=== PATIENT | female | born 1965 | race Caucasian/White ===

== ENCOUNTER 2021-09-20 19:36 | Inpatient (IN) ==
[2021-09-20] MEDS ORDERED: Propofol 10 mg/ml 100 ML BTL 100 ML IV ONE (19:45)
[2021-09-20] MEDS ORDERED: fentaNYL INFUSION 50 mcg/mL VL 2,500 MCG/50 ML VIAL IV SCH ×2 (20:00)
[2021-09-20 20:42] LABS: ABS Lymphocytes 0.2 10^3/ul (1.0-4.8); ABS Monocytes 0.3 10^3/ul (0-0.8); ABS Neutrophils 6.7 10^3/ul (1.5-7.7); ABS Nucleated RBC 0.1 10^3/ul; Hematocrit 59 % (35-47); Hemoglobin 19.2 g/dL (12.0-16.0); Lymphocyte % 2.2 %; Mean Corpuscular HGB Conc 33 g/dL (31-36); Mean Corpuscular Hemoglobin 33 pg (27-31); Mean Corpuscular Volume 100 fL (80-97); Mean Platelet Volume 8.7 fL (7.4-10.4); Nucleated Red Blood Cells % 1.4; Platelet Count 107 10^3/uL (150-450); Red Cell Distribution Width 18 % (10-15); White Blood Count 7.2 10^3/uL (3.5-10.8)
[2021-09-20 20:52] LABS: INR 0.98 (0.86-1.15)
[2021-09-20 21:00] LABS: ALT 41 U/L (7-52); Albumin 3.5 g/dL (3.2-5.2); Albumin/Globulin Ratio 0.8 (1-3); Alkaline Phosphatase 162 U/L (35-149); Blood Urea Nitrogen 48 mg/dL (6-24); C Reactive Protein 112.54 mg/L (<8.01); CO2 Carbon Dioxide 34 mmol/L (22-32); Calcium 8.6 mg/dL (8.6-10.3); Chloride 95 mmol/L (101-111); Globulin 4.4 g/dL (2-4); Glucose 200 mg/dL (70-100); Sodium 132 mmol/L (135-145); Total Protein 7.9 g/dL (6.4-8.9); eGFR CKD-EPI 46.1 (>60)
[2021-09-20] MEDS ORDERED: Remdesivir 100 mg Vial 200 MG in NS 0.9% 250 ml 210 ML IV ONE (21:00)
[2021-09-20 21:05] LABS: LDH 936 U/L (140-271)
[2021-09-20 21:12] LABS: PO2 Arterial 75 mmHg (80-100)
[2021-09-20 21:15] LABS: TSH Ultra Thyroid Stim Horm 0.89 mcIU/mL (0.34-5.60)
[2021-09-20 21:18] LABS: Magnesium 2.6 mg/dL (1.9-2.7)
[2021-09-20 21:19] LABS: AST 93 U/L (13-39); Indirect Bilirubin 0.5 mg/dL (0.3-1.0)
[2021-09-20 21:20] LABS: Anion Gap 3 mmol/L (2-11); Ferritin 519.6 ng/mL (11-307)
[2021-09-20 21:24] LABS: Potassium 6.5 mmol/L (3.5-5.0); Troponin I 0.03 ng/mL (<0.03)
[2021-09-20 21:27] LABS: PCO2 Arterial 104 mmHg (35-45)
[2021-09-20] MEDS ORDERED: Sodium Polystyrene ORAL.SUSP 15 GM/60 ML BTL PO ONE (21:36)
[2021-09-20] MEDS ORDERED: CALCIUM GLUCONATE 1GM/50ML NS 1 GM/50 ML BAG IV ONE (21:37)
[2021-09-20] MEDS ORDERED: Dextrose 50% Syringe 50 ml 25 GM/50 ML SYRINGE IV PUSH ONE (21:38)
[2021-09-20] MEDS ORDERED: Sodium Bicarbonate 8.4% SYR 50 ml SYRINGE IV ONE (21:38)
[2021-09-20] MEDS: Propofol 10 mg/ml 100 ML BTL 100 ML IV SCH (22:17)
[2021-09-20] MEDS: methylPREDNISolone SOD 40 mg/ml 1 ml VIAL IV SCH (22:18)
[2021-09-21 00:59] LABS: PCO2 Arterial 71 mmHg (35-45); PO2 Arterial 79 mmHg (80-100)
[2021-09-21] MEDS ORDERED: Chlorhexidine MOUTHWASH 0.12% 15 ML UDC SWISH SPIT SCH (01:00)
[2021-09-21] MEDS ORDERED: Enoxaparin 40 MG/0.4 ML SYR SUBCUT SCH (01:00)
[2021-09-21 01:05] LABS: Urine Appearance Cloudy; Urine Bilirubin Negative (Negative); Urine Blood 1+ (Negative); Urine Color Amber; Urine Glucose Negative (Negative); Urine Ketones Negative (Negative); Urine Nitrite Negative (Negative); Urine Protein 2+(100 mg/dL) (Negative); Urine Specific Gravity 1.023 (1.002-1.030); Urine Urobilinogen Negative (Negative)
[2021-09-21 01:07] LABS: Urine Bacteria Absent (Absent); Urine Red Blood Cell Trace(0-2/hpf) (Absent); Urine Squamous Epithelial Cell Present (Absent); Urine White Blood Cell Absent (Absent)
[2021-09-21 01:12] LABS: Blood Urea Nitrogen 50 mg/dL (6-24); CO2 Carbon Dioxide 35 mmol/L (22-32); Calcium 8.4 mg/dL (8.6-10.3); Chloride 95 mmol/L (101-111); Glucose 270 mg/dL (70-100); Sodium 133 mmol/L (135-145)
[2021-09-21 01:16] LABS: Anion Gap 3 mmol/L (2-11)
[2021-09-21 01:25] LABS: Urine Benzodiazepine Screen Presumptive Positive (None Detect); Urine Cannabinoids Screen None Detected (None Detect); Urine Opiates Screen Presumptive Positive (None Detect)
[2021-09-21] MEDS: Chlorhexidine MOUTHWASH 0.12% 15 ML UDC SWISH SPIT SCH ×6 (02:01→21:12)
[2021-09-21] MEDS: Pantoprazole VIAL 40 MG VIAL IV SCH (02:02)
[2021-09-21] MEDS: cefTRIAXone 1 gm/50 mL NS BAG 1 GM/50 ML BAG IVPB SCH (02:03)
[2021-09-21] MEDS: Azithromycin 500 mg/250 ml NS 500 MG/250 ML BAG IVPB SCH (02:05)
[2021-09-21] MEDS: Propofol 10 mg/ml 100 ML BTL 100 ML IV SCH ×2 (02:10→23:25)
[2021-09-21] MEDS: methylPREDNISolone SOD 40 mg/ml 1 ml VIAL IV SCH ×3 (05:02→21:10)
[2021-09-21 05:30] LABS: ABS Lymphocytes 0.2 10^3/ul (1.0-4.8); ABS Monocytes 0.2 10^3/ul (0-0.8); ABS Neutrophils 5.4 10^3/ul (1.5-7.7); ABS Nucleated RBC 0.1 10^3/ul; Hematocrit 56 % (35-47); Hemoglobin 18.3 g/dL (12.0-16.0); Lymphocyte % 3.2 %; Mean Corpuscular HGB Conc 33 g/dL (31-36); Mean Corpuscular Hemoglobin 32 pg (27-31); Mean Corpuscular Volume 100 fL (80-97); Mean Platelet Volume 9.1 fL (7.4-10.4); Nucleated Red Blood Cells % 1.8; Platelet Count 104 10^3/uL (150-450); Red Blood Count 5.64 10^6 /uL (3.70-4.87); Red Cell Distribution Width 18 % (10-15); White Blood Count 5.8 10^3/uL (3.5-10.8)
[2021-09-21 05:31] LABS: Potassium, Whole Blood 6.4 mmol/L (3.4-4.5)
[2021-09-21 05:35] LABS: INR 1.01 (0.86-1.15)
[2021-09-21 05:49] LABS: Magnesium 2.6 mg/dL (1.9-2.7); eGFR CKD-EPI 40.3 (>60)
[2021-09-21 05:52] LABS: Potassium 6.4 mmol/L (3.5-5.0)
[2021-09-21] MEDS ORDERED: Albuterol HFA INHALER 8 gm MDI INH PRN (05:58)
[2021-09-21] MEDS ORDERED: Sodium Polystyrene ORAL.SUSP 15 GM/60 ML BTL PO ONE (05:58)
[2021-09-21] MEDS ORDERED: Dextrose 50% Syringe 50 ml 25 GM/50 ML SYRINGE IV PUSH ONE (05:58)
[2021-09-21] MEDS ORDERED: CALCIUM GLUCONATE 1GM/50ML NS 1 GM/50 ML BAG IV ONE (05:59)
[2021-09-21] MEDS ORDERED: Sodium Bicarbonate 8.4% SYR 50 ml SYRINGE IV ONE (06:00)
[2021-09-21 06:15] LABS: PO2 Arterial 72 mmHg (80-100)
[2021-09-21 06:17] LABS: PCO2 Arterial 100 mmHg (35-45)
[2021-09-21] MEDS ORDERED: Sodium Bicarb 8.4% Vial 50 ML 150 MEQ in D5W 1000 ml BAG 850 ML IV SCH (08:00)
[2021-09-21] MEDS ORDERED: Sodium Bicarbonate 8.4% VIAL 1 MEQ/ML 50 ml VIAL (50 meq) ONE ×2 (08:24→20:04)
[2021-09-21] MEDS: Sodium Bicarb 8.4% Vial 50 ML 150 MEQ in D5W 1000 ml BAG 850 ML IV SCH ×2 (10:26→21:10)
[2021-09-21 10:44] LABS: Blood Urea Nitrogen 54 mg/dL (6-24); CO2 Carbon Dioxide 40 mmol/L (22-32); Calcium 8.2 mg/dL (8.6-10.3); Chloride 96 mmol/L (101-111); Glucose 248 mg/dL (70-100); Sodium 139 mmol/L (135-145)
[2021-09-21 11:17] LABS: Anion Gap 3 mmol/L (2-11)
[2021-09-21 12:30] LABS: Calcium 8.2 mg/dL (8.6-10.3); eGFR CKD-EPI 40.3 (>60)
[2021-09-21 12:42] LABS: Potassium 5.2 mmol/L (3.5-5.0)
[2021-09-21] MEDS ORDERED: Perflutren Lipid Microsphere 3 ML VIAL ONE (14:36)
[2021-09-21 15:47] LABS: Venous Bicarbonate HCO3 20.4 mmol/L (24-28)
[2021-09-21 20:53] LABS: PCO2 Arterial 76 mmHg (35-45); PO2 Arterial 55 mmHg (80-100)
[2021-09-21] MEDS: Remdesivir 100 mg Vial 100 MG in NS 0.9% 250 ml 230 ML IV SCH (21:23)
[2021-09-21] MEDS ORDERED: Furosemide 40 mg/4 ml IV VIAL IV SLOW PU ONE (21:40)
[2021-09-21] MEDS ORDERED: Cisatracurium 100 MG in NS 0.9% 250 ml 200 ML IV SCH (21:45)
[2021-09-21] MEDS ORDERED: NS 0.9% 250 ml 250 ML ONE (22:37)
[2021-09-22] MEDS: Chlorhexidine MOUTHWASH 0.12% 15 ML UDC SWISH SPIT SCH ×6 (00:57→21:27)
[2021-09-22] MEDS: cefTRIAXone 1 gm/50 mL NS BAG 1 GM/50 ML BAG IVPB SCH (03:30)
[2021-09-22] MEDS: Pantoprazole VIAL 40 MG VIAL IV SCH (03:30)
[2021-09-22] MEDS: methylPREDNISolone SOD 40 mg/ml 1 ml VIAL IV SCH ×3 (04:22→21:27)
[2021-09-22] MEDS: Propofol 10 mg/ml 100 ML BTL 100 ML IV SCH ×4 (04:22→21:26)
[2021-09-22] MEDS: Azithromycin 500 mg/250 ml NS 500 MG/250 ML BAG IVPB SCH (04:58)
[2021-09-22 05:32] LABS: Calcium 7.3 mg/dL (8.6-10.3); Chloride 92 mmol/L (101-111); Magnesium 2.4 mg/dL (1.9-2.7); Sodium 139 mmol/L (135-145)
[2021-09-22 05:38] LABS: Blood Urea Nitrogen 54 mg/dL (6-24); Glucose 356 mg/dL (70-100); eGFR CKD-EPI 44.9 (>60)
[2021-09-22 05:39] LABS: Anion Gap 5 mmol/L (2-11); CO2 Carbon Dioxide 42 mmol/L (22-32)
[2021-09-22 05:40] LABS: INR 1.12 (0.86-1.15)
[2021-09-22 05:44] LABS: RBC Morphology Normal (Normal)
[2021-09-22 05:45] LABS: ABS Lymphocytes 0.2 10^3/ul (1.0-4.8); ABS Monocytes 0.2 10^3/ul (0-0.8); ABS Neutrophils 2.5 10^3/ul (1.5-7.7); ABS Nucleated RBC 0.1 10^3/ul; Hematocrit 56 % (35-47); Hemoglobin 18.1 g/dL (12.0-16.0); Large Platelets Present; Lymphocyte % 8.1 %; Mean Corpuscular HGB Conc 32 g/dL (31-36); Mean Corpuscular Hemoglobin 32 pg (27-31); Mean Corpuscular Volume 100 fL (80-97); Mean Platelet Volume 8.9 fL (7.4-10.4); Nucleated Red Blood Cells % 2.1; Platelet Count 91 10^3/uL (150-450); Red Blood Count 5.65 10^6 /uL (3.70-4.87); Red Cell Distribution Width 18 % (10-15); White Blood Count 2.9 10^3/uL (3.5-10.8)
[2021-09-22 06:51] LABS: Potassium, Whole Blood 4.7 mmol/L (3.4-4.5)
[2021-09-22] MEDS: Sodium Bicarb 8.4% Vial 50 ML 150 MEQ in D5W 1000 ml BAG 850 ML IV SCH (07:53)
[2021-09-22 08:50] LABS: PO2 Arterial 90 mmHg (80-100)
[2021-09-22 08:53] LABS: PCO2 Arterial 75 mmHg (35-45)
[2021-09-22] MEDS: Furosemide 40 mg/4 ml IV VIAL IV SLOW PU SCH ×2 (10:28→17:16)
[2021-09-22] MEDS ORDERED: Perflutren Lipid Microsphere 3 ML VIAL ONE (14:02)
[2021-09-22] MEDS ORDERED: fentaNYL INFUSION 50 mcg/mL VL 2,500 MCG/50 ML VIAL IV SCH (15:05)
[2021-09-22 15:09] LABS: Hematocrit 53 % (35-47)
[2021-09-22 15:50] LABS: Calcium 7.1 mg/dL (8.6-10.3)
[2021-09-22] MEDS: Cisatracurium 100 MG in NS 0.9% 250 ml 200 ML IV SCH ×2 (17:00)
[2021-09-22 17:11] LABS: Potassium 4.2 mmol/L (3.5-5.0)
[2021-09-22] MEDS: Remdesivir 100 mg Vial 100 MG in NS 0.9% 250 ml 230 ML IV SCH (21:26)
[2021-09-23] MEDS: Propofol 10 mg/ml 100 ML BTL 100 ML IV SCH ×4 (00:12→15:25)
[2021-09-23] MEDS: cefTRIAXone 1 gm/50 mL NS BAG 1 GM/50 ML BAG IVPB SCH (01:54)
[2021-09-23] MEDS: Pantoprazole VIAL 40 MG VIAL IV SCH (01:54)
[2021-09-23] MEDS: Chlorhexidine MOUTHWASH 0.12% 15 ML UDC SWISH SPIT SCH ×6 (01:54→20:47)
[2021-09-23] MEDS: Azithromycin 500 mg/250 ml NS 500 MG/250 ML BAG IVPB SCH (03:41)
[2021-09-23] MEDS: Cisatracurium 100 MG in NS 0.9% 250 ml 200 ML IV SCH ×2 (03:42→13:16)
[2021-09-23 04:14] LABS: Hematocrit 52 % (35-47); Hemoglobin 16.6 g/dL (12.0-16.0); Mean Corpuscular HGB Conc 32 g/dL (31-36); Mean Corpuscular Hemoglobin 32 pg (27-31); Mean Corpuscular Volume 100 fL (80-97); Mean Platelet Volume 9.6 fL (7.4-10.4); Platelet Count 111 10^3/uL (150-450); Red Blood Count 5.16 10^6 /uL (3.70-4.87); Red Cell Distribution Width 18 % (10-15); White Blood Count 3.2 10^3/uL (3.5-10.8)
[2021-09-23 04:18] LABS: ABS Lymphocytes 0.2 10^3/ul (1.0-4.8); ABS Monocytes 0.4 10^3/ul (0-0.8); ABS Neutrophils 2.6 10^3/ul (1.5-7.7); ABS Nucleated RBC 0.1 10^3/ul; Lymphocyte % 6.4 %; Nucleated Red Blood Cells % 1.5
[2021-09-23 04:20] LABS: INR 1.11 (0.86-1.15)
[2021-09-23 04:37] LABS: Albumin 2.5 g/dL (3.2-5.2); Calcium 6.9 mg/dL (8.6-10.3); Chloride 93 mmol/L (101-111); Indirect Bilirubin 0.4 mg/dL (0.3-1.0); Magnesium 2.4 mg/dL (1.9-2.7); Potassium 4.2 mmol/L (3.5-5.0); Sodium 142 mmol/L (135-145)
[2021-09-23 04:43] LABS: ALT 31 U/L (7-52); AST 59 U/L (13-39); Albumin/Globulin Ratio 0.7 (1-3); Alkaline Phosphatase 95 U/L (35-149); Blood Urea Nitrogen 61 mg/dL (6-24); Globulin 3.4 g/dL (2-4); Glucose 293 mg/dL (70-100); Phosphorus 5.5 mg/dL (2.5-5.0); Total Protein 5.9 g/dL (6.4-8.9)
[2021-09-23 05:01] LABS: CO2 Carbon Dioxide 46 mmol/L (22-32)
[2021-09-23] MEDS: methylPREDNISolone SOD 40 mg/ml 1 ml VIAL IV SCH ×2 (05:11→16:15)
[2021-09-23] MEDS: Insulin GLARGINE 100 un/ml 10 ml VIAL SUBCUT SCH (07:53)
[2021-09-23] MEDS ORDERED: NS 0.9% 250 ml 250 ML IV ONE (08:47)
[2021-09-23] MEDS: acetaZOLAMIDE IV 250 MG in NS 0.9% 50 ML 50 ML IVPB SCH ×2 (10:17→11:04)
[2021-09-23 10:48] LABS: PO2 Arterial 96 mmHg (80-100)
[2021-09-23 10:54] LABS: PCO2 Arterial 82 mmHg (35-45)
[2021-09-23] MEDS: Remdesivir 100 mg Vial 100 MG in NS 0.9% 250 ml 230 ML IV SCH (22:22)
[2021-09-24] MEDS: Pantoprazole VIAL 40 MG VIAL IV SCH (01:09)
[2021-09-24] MEDS: Chlorhexidine MOUTHWASH 0.12% 15 ML UDC SWISH SPIT SCH ×6 (01:09→20:35)
[2021-09-24] MEDS: cefTRIAXone 1 gm/50 mL NS BAG 1 GM/50 ML BAG IVPB SCH (02:27)
[2021-09-24] MEDS: Azithromycin 500 mg/250 ml NS 500 MG/250 ML BAG IVPB SCH (03:22)
[2021-09-24 04:45] LABS: Hematocrit 54 % (35-47); Hemoglobin 17.1 g/dL (12.0-16.0); Mean Corpuscular HGB Conc 32 g/dL (31-36); Mean Corpuscular Hemoglobin 32 pg (27-31); Mean Corpuscular Volume 101 fL (80-97); Mean Platelet Volume 8.5 fL (7.4-10.4); Platelet Count 106 10^3/uL (150-450); Red Blood Count 5.31 10^6 /uL (3.70-4.87); Red Cell Distribution Width 18 % (10-15); White Blood Count 4.9 10^3/uL (3.5-10.8)
[2021-09-24] MEDS: methylPREDNISolone SOD 40 mg/ml 1 ml VIAL IV SCH ×2 (04:46→16:07)
[2021-09-24 04:51] LABS: INR 1.02 (0.86-1.15)
[2021-09-24 05:18] LABS: Albumin 2.7 g/dL (3.2-5.2); Albumin/Globulin Ratio 0.8 (1-3); Calcium 7.3 mg/dL (8.6-10.3); Direct Bilirubin 0.2 mg/dL (0.03-0.18); Globulin 3.4 g/dL (2-4); Indirect Bilirubin 0.4 mg/dL (0.3-1.0); Magnesium 2.5 mg/dL (1.9-2.7); Potassium 4.3 mmol/L (3.5-5.0); Total Bilirubin 0.6 mg/dL (0.2-1.0); Total Protein 6.1 g/dL (6.4-8.9); eGFR CKD-EPI 55.9 (>60)
[2021-09-24] MEDS: Propofol 10 mg/ml 100 ML BTL 100 ML IV SCH ×3 (08:00→23:37)
[2021-09-24] MEDS: acetaZOLAMIDE IV 250 MG in NS 0.9% 50 ML 50 ML IVPB SCH (08:23)
[2021-09-24] MEDS: Insulin GLARGINE 100 un/ml 10 ml VIAL SUBCUT SCH (08:39)
[2021-09-24] MEDS ORDERED: Furosemide 40 mg/4 ml IV VIAL IV SLOW PU ONE ×2 (09:06→17:00)
[2021-09-24] MEDS: Carboxymethylcellulose/Glyceri 10 ML OPHTH.GEL lubricant eye gel BOTH EYES SCH ×2 (12:17→20:35)
[2021-09-24] MEDS: fentaNYL INFUSION 50 mcg/mL VL 2,500 MCG/50 ML VIAL IV SCH (16:43)
[2021-09-24] MEDS: Remdesivir 100 mg Vial 100 MG in NS 0.9% 250 ml 230 ML IV SCH (20:35)
[2021-09-25] MEDS: cefTRIAXone 1 gm/50 mL NS BAG 1 GM/50 ML BAG IVPB SCH (02:53)
[2021-09-25] MEDS: Chlorhexidine MOUTHWASH 0.12% 15 ML UDC SWISH SPIT SCH ×6 (03:21→20:17)
[2021-09-25] MEDS: Azithromycin 500 mg/250 ml NS 500 MG/250 ML BAG IVPB SCH (03:21)
[2021-09-25] MEDS: Pantoprazole VIAL 40 MG VIAL IV SCH (03:21)
[2021-09-25] MEDS: methylPREDNISolone SOD 40 mg/ml 1 ml VIAL IV SCH ×2 (04:41→15:21)
[2021-09-25] MEDS: Propofol 10 mg/ml 100 ML BTL 100 ML IV SCH ×3 (04:56→20:10)
[2021-09-25 05:01] LABS: INR 1.02 (0.86-1.15)
[2021-09-25 05:13] LABS: Albumin 2.7 g/dL (3.2-5.2); Albumin/Globulin Ratio 0.8 (1-3); Calcium 7.9 mg/dL (8.6-10.3); Globulin 3.5 g/dL (2-4); Total Bilirubin 0.6 mg/dL (0.2-1.0); Total Protein 6.2 g/dL (6.4-8.9); eGFR CKD-EPI 63.1 (>60)
[2021-09-25 05:36] LABS: Direct Bilirubin 0.2 mg/dL (0.03-0.18); Indirect Bilirubin 0.4 mg/dL (0.3-1.0)
[2021-09-25 05:37] LABS: Potassium 4.5 mmol/L (3.5-5.0)
[2021-09-25] MEDS: Carboxymethylcellulose/Glyceri 10 ML OPHTH.GEL lubricant eye gel BOTH EYES SCH ×2 (08:13→19:32)
[2021-09-25] MEDS: Insulin GLARGINE 100 un/ml 10 ml VIAL SUBCUT SCH (08:26)
[2021-09-25] MEDS ORDERED: acetaZOLAMIDE IV 500 MG in NS 0.9% 50 ML 50 ML IVPB ONE (09:45)
[2021-09-25 11:17] LABS: PO2 Arterial 85 mmHg (80-100)
[2021-09-25 11:19] LABS: PCO2 Arterial 99 mmHg (35-45)
[2021-09-25 12:45] LABS: Hematocrit 53 % (35-47); Hemoglobin 16.7 g/dL (12.0-16.0); Mean Corpuscular HGB Conc 32 g/dL (31-36); Mean Corpuscular Hemoglobin 32 pg (27-31); Mean Corpuscular Volume 102 fL (80-97); Platelet Count 111 10^3/uL (150-450); Red Blood Count 5.17 10^6 /uL (3.70-4.87); Red Cell Distribution Width 18 % (10-15); White Blood Count 5.3 10^3/uL (3.5-10.8)
[2021-09-25] MEDS: Docusate LIQ 100 MG/10 ML UDC PO SCH ×2 (14:47→19:32)
[2021-09-25] MEDS: Senna TAB 8.6 mg TAB PO SCH ×2 (14:47→19:32)
[2021-09-25] MEDS: Polyethylene Glycol 3350 17 GM PACKET PO SCH (14:47)
[2021-09-25 16:23] LABS: PO2 Arterial 83 mmHg (80-100)
[2021-09-25 16:33] LABS: PCO2 Arterial 96 mmHg (35-45)
[2021-09-25] MEDS: fentaNYL INFUSION 50 mcg/mL VL 2,500 MCG/50 ML VIAL IV SCH (21:47)
[2021-09-26] MEDS: Chlorhexidine MOUTHWASH 0.12% 15 ML UDC SWISH SPIT SCH ×6 (00:59→20:07)
[2021-09-26] MEDS: Pantoprazole VIAL 40 MG VIAL IV SCH (00:59)
[2021-09-26] MEDS: cefTRIAXone 1 gm/50 mL NS BAG 1 GM/50 ML BAG IVPB SCH (00:59)
[2021-09-26] MEDS: Azithromycin 500 mg/250 ml NS 500 MG/250 ML BAG IVPB SCH (02:15)
[2021-09-26] MEDS: Propofol 10 mg/ml 100 ML BTL 100 ML IV SCH ×2 (03:21→17:26)
[2021-09-26 04:18] LABS: Hematocrit 50 % (35-47); Mean Corpuscular HGB Conc 32 g/dL (31-36); Mean Corpuscular Hemoglobin 32 pg (27-31); Mean Corpuscular Volume 100 fL (80-97); Mean Platelet Volume 9.4 fL (7.4-10.4); Platelet Count 103 10^3/uL (150-450); Red Blood Count 4.99 10^6 /uL (3.70-4.87); Red Cell Distribution Width 18 % (10-15); White Blood Count 5.5 10^3/uL (3.5-10.8)
[2021-09-26 04:23] LABS: INR 1.08 (0.86-1.15)
[2021-09-26 04:35] LABS: ALT 58 U/L (7-52); AST 60 U/L (13-39); Albumin 2.7 g/dL (3.2-5.2); Albumin/Globulin Ratio 0.8 (1-3); Alkaline Phosphatase 89 U/L (35-149); Blood Urea Nitrogen 46 mg/dL (6-24); Calcium 8.4 mg/dL (8.6-10.3); Chloride 105 mmol/L (101-111); Globulin 3.5 g/dL (2-4); Glucose 108 mg/dL (70-100); Indirect Bilirubin 0.4 mg/dL (0.3-1.0); Magnesium 2.2 mg/dL (1.9-2.7); Phosphorus 2.6 mg/dL (2.5-5.0); Potassium 4.6 mmol/L (3.5-5.0); Total Protein 6.2 g/dL (6.4-8.9); eGFR CKD-EPI 77.1 (>60)
[2021-09-26 04:37] LABS: CO2 Carbon Dioxide 42 mmol/L (22-32); Sodium 147 mmol/L (135-145)
[2021-09-26] MEDS: methylPREDNISolone SOD 40 mg/ml 1 ml VIAL IV SCH ×2 (04:47→16:56)
[2021-09-26] MEDS: Insulin GLARGINE 100 un/ml 10 ml VIAL SUBCUT SCH (09:25)
[2021-09-26] MEDS: Senna TAB 8.6 mg TAB PO SCH ×2 (09:25→19:33)
[2021-09-26] MEDS: Carboxymethylcellulose/Glyceri 10 ML OPHTH.GEL lubricant eye gel BOTH EYES SCH ×2 (09:25→19:33)
[2021-09-26] MEDS: Docusate LIQ 100 MG/10 ML UDC PO SCH ×2 (09:25→19:33)
[2021-09-26] MEDS: Polyethylene Glycol 3350 17 GM PACKET PO SCH (09:26)
[2021-09-26] MEDS ORDERED: Magnesium CITRATE LIQ 300 ML BTL PO ONE (09:43)
[2021-09-26] MEDS ORDERED: Methylnaltrexone SQ (NF) 12 MG/0.6 ML VIAL SUBCUT ONE (10:05)
[2021-09-26 10:27] LABS: PO2 Arterial 77 mmHg (80-100)
[2021-09-26 10:30] LABS: PCO2 Arterial 74 mmHg (35-45)
[2021-09-26] MEDS ORDERED: acetaZOLAMIDE IV 250 MG in NS 0.9% 50 ML 50 ML IVPB ONE (11:30)
[2021-09-27] MEDS: cefTRIAXone 1 gm/50 mL NS BAG 1 GM/50 ML BAG IVPB SCH (00:26)
[2021-09-27] MEDS: Pantoprazole VIAL 40 MG VIAL IV SCH (00:26)
[2021-09-27] MEDS: Chlorhexidine MOUTHWASH 0.12% 15 ML UDC SWISH SPIT SCH ×6 (00:26→20:29)
[2021-09-27] MEDS: Azithromycin 500 mg/250 ml NS 500 MG/250 ML BAG IVPB SCH (02:15)
[2021-09-27] MEDS: methylPREDNISolone SOD 40 mg/ml 1 ml VIAL IV SCH ×2 (03:54→17:15)
[2021-09-27 04:12] LABS: Hematocrit 51 % (35-47); Hemoglobin 16.3 g/dL (12.0-16.0); Mean Corpuscular HGB Conc 32 g/dL (31-36); Mean Corpuscular Hemoglobin 32 pg (27-31); Mean Corpuscular Volume 100 fL (80-97); Mean Platelet Volume 9.4 fL (7.4-10.4); Platelet Count 91 10^3/uL (150-450); Red Blood Count 5.12 10^6 /uL (3.70-4.87); Red Cell Distribution Width 18 % (10-15); White Blood Count 7.1 10^3/uL (3.5-10.8)
[2021-09-27] MEDS: Propofol 10 mg/ml 100 ML BTL 100 ML IV SCH ×5 (04:21→23:15)
[2021-09-27 04:26] LABS: Albumin 2.7 g/dL (3.2-5.2); Albumin/Globulin Ratio 0.8 (1-3); Calcium 8.9 mg/dL (8.6-10.3); Globulin 3.6 g/dL (2-4); Magnesium 1.9 mg/dL (1.9-2.7); Total Bilirubin 0.9 mg/dL (0.2-1.0); Total Protein 6.3 g/dL (6.4-8.9); eGFR CKD-EPI 85.1 (>60)
[2021-09-27 04:29] LABS: Direct Bilirubin 0.3 mg/dL (0.03-0.18); Indirect Bilirubin 0.6 mg/dL (0.3-1.0); Phosphorus 2.8 mg/dL (2.5-5.0); Potassium 4.4 mmol/L (3.5-5.0)
[2021-09-27] MEDS: Docusate LIQ 100 MG/10 ML UDC PO SCH ×2 (08:04→19:37)
[2021-09-27] MEDS: Carboxymethylcellulose/Glyceri 10 ML OPHTH.GEL lubricant eye gel BOTH EYES SCH ×2 (08:04→19:37)
[2021-09-27] MEDS: Senna TAB 8.6 mg TAB PO SCH ×2 (08:05→19:37)
[2021-09-27] MEDS: Insulin GLARGINE 100 un/ml 10 ml VIAL SUBCUT SCH (08:05)
[2021-09-27] MEDS: Polyethylene Glycol 3350 17 GM PACKET PO SCH (08:05)
[2021-09-27] MEDS ORDERED: fentaNYL 100 mcg/2 ml 50 MCG/ML VIAL ONE (10:25)
[2021-09-27] MEDS ORDERED: fentaNYL 100 mcg/2 ml 50 MCG/ML VIAL IV SLOW PU ONE (10:42)
[2021-09-27 11:59] LABS: PO2 Arterial 99 mmHg (80-100)
[2021-09-27 12:08] LABS: PCO2 Arterial 81 mmHg (35-45)
[2021-09-28] MEDS: Chlorhexidine MOUTHWASH 0.12% 15 ML UDC SWISH SPIT SCH ×6 (00:10→21:30)
[2021-09-28] MEDS: cefTRIAXone 1 gm/50 mL NS BAG 1 GM/50 ML BAG IVPB SCH (00:10)
[2021-09-28] MEDS: Pantoprazole VIAL 40 MG VIAL IV SCH (00:10)
[2021-09-28] MEDS: Propofol 10 mg/ml 100 ML BTL 100 ML IV SCH ×7 (01:20→23:37)
[2021-09-28] MEDS: methylPREDNISolone SOD 40 mg/ml 1 ml VIAL IV SCH ×2 (03:57→17:29)
[2021-09-28 04:28] LABS: Hematocrit 51 % (35-47); Hemoglobin 16.1 g/dL (12.0-16.0); Mean Corpuscular HGB Conc 32 g/dL (31-36); Mean Corpuscular Hemoglobin 32 pg (27-31); Mean Corpuscular Volume 102 fL (80-97); Mean Platelet Volume 9.3 fL (7.4-10.4); Platelet Count 83 10^3/uL (150-450); Red Blood Count 4.99 10^6 /uL (3.70-4.87); Red Cell Distribution Width 17 % (10-15)
[2021-09-28 04:39] LABS: ALT 46 U/L (7-52); Albumin 2.8 g/dL (3.2-5.2); Albumin/Globulin Ratio 0.7 (1-3); Alkaline Phosphatase 88 U/L (35-149); Blood Urea Nitrogen 42 mg/dL (6-24); CO2 Carbon Dioxide 40 mmol/L (22-32); Calcium 8.9 mg/dL (8.6-10.3); Chloride 105 mmol/L (101-111); Globulin 3.8 g/dL (2-4); Glucose 146 mg/dL (70-100); Total Protein 6.6 g/dL (6.4-8.9); eGFR CKD-EPI 85.1 (>60)
[2021-09-28 04:53] LABS: Sodium 146 mmol/L (135-145)
[2021-09-28] MEDS: fentaNYL INFUSION 50 mcg/mL VL 2,500 MCG/50 ML VIAL IV SCH (05:33)
[2021-09-28 05:36] LABS: Phosphorus 5.1 mg/dL (2.5-5.0)
[2021-09-28 05:38] LABS: Potassium Redraw 5.1 mmol/L (3.5-5.0)
[2021-09-28 05:55] LABS: Anion Gap 1 mmol/L (2-11)
[2021-09-28] MEDS ORDERED: Furosemide 40 mg/4 ml IV VIAL IV ONE (07:28)
[2021-09-28] MEDS: Docusate LIQ 100 MG/10 ML UDC PO SCH ×2 (08:06→21:30)
[2021-09-28] MEDS: Senna TAB 8.6 mg TAB PO SCH ×2 (08:06→21:30)
[2021-09-28] MEDS: Polyethylene Glycol 3350 17 GM PACKET PO SCH (08:07)
[2021-09-28] MEDS: Carboxymethylcellulose/Glyceri 10 ML OPHTH.GEL lubricant eye gel BOTH EYES SCH ×2 (08:07→21:31)
[2021-09-28] MEDS: Insulin GLARGINE 100 un/ml 10 ml VIAL SUBCUT SCH (08:42)
[2021-09-28] MEDS: CMCS: Baricitinib 2 MG TAB (NF) PO SCH (21:48)
[2021-09-29] MEDS: cefTRIAXone 1 gm/50 mL NS BAG 1 GM/50 ML BAG IVPB SCH (02:22)
[2021-09-29] MEDS: Chlorhexidine MOUTHWASH 0.12% 15 ML UDC SWISH SPIT SCH ×6 (02:23→21:26)
[2021-09-29] MEDS: Pantoprazole VIAL 40 MG VIAL IV SCH (02:52)
[2021-09-29] MEDS: Propofol 10 mg/ml 100 ML BTL 100 ML IV SCH ×2 (03:06→06:39)
[2021-09-29] MEDS: Albuterol/Ipratropium NEB.SOL (2.5/0.5 MG) 3 ML NEB.SOLN INH PRN (04:12)
[2021-09-29 05:32] LABS: Hematocrit 50 % (35-47); Hemoglobin 16.1 g/dL (12.0-16.0); Mean Corpuscular HGB Conc 32 g/dL (31-36); Mean Corpuscular Hemoglobin 32 pg (27-31); Mean Corpuscular Volume 101 fL (80-97); Mean Platelet Volume 11.2 fL (7.4-10.4); Platelet Count 93 10^3/uL (150-450); Red Cell Distribution Width 17 % (10-15); White Blood Count 6.2 10^3/uL (3.5-10.8)
[2021-09-29] MEDS: methylPREDNISolone SOD 40 mg/ml 1 ml VIAL IV SCH ×2 (05:51→17:02)
[2021-09-29 05:54] LABS: Albumin 2.9 g/dL (3.2-5.2); Albumin/Globulin Ratio 0.8 (1-3); Calcium 9.3 mg/dL (8.6-10.3); Globulin 3.7 g/dL (2-4); Magnesium 1.9 mg/dL (1.9-2.7); Phosphorus 2.6 mg/dL (2.5-5.0); Potassium 4.7 mmol/L (3.5-5.0); Total Bilirubin 0.7 mg/dL (0.2-1.0); Total Protein 6.6 g/dL (6.4-8.9); eGFR CKD-EPI 102.9 (>60)
[2021-09-29] MEDS ORDERED: methylPREDNISolone SOD 40 mg/ml 1 ml VIAL IV SCH (08:00)
[2021-09-29] MEDS: Senna TAB 8.6 mg TAB PO SCH ×2 (08:04→21:26)
[2021-09-29] MEDS: Docusate LIQ 100 MG/10 ML UDC PO SCH ×2 (08:04→21:26)
[2021-09-29] MEDS: Polyethylene Glycol 3350 17 GM PACKET PO SCH (08:04)
[2021-09-29] MEDS: Carboxymethylcellulose/Glyceri 10 ML OPHTH.GEL lubricant eye gel BOTH EYES SCH ×2 (08:05→21:27)
[2021-09-29] MEDS ORDERED: methylPREDNISolone SOD 40 mg/ml 1 ml VIAL ONE (08:13)
[2021-09-29] MEDS: Insulin GLARGINE 100 un/ml 10 ml VIAL SUBCUT SCH (08:34)
[2021-09-29] MEDS ORDERED: Propofol 10 mg/ml 100 ML BTL 100 ML IV SCH (10:23)
[2021-09-29 13:31] LABS: Rapid COVID-19 Molecular Detected (Undetected)
[2021-09-29] MEDS: CMCS: Baricitinib 2 MG TAB (NF) PO SCH (21:27)
[2021-09-29] MEDS: fentaNYL 100 mcg/2 ml 50 MCG/ML VIAL IV SLOW PU PRN (21:31)
[2021-09-30] MEDS: Pantoprazole VIAL 40 MG VIAL IV SCH (02:21)
[2021-09-30] MEDS: Chlorhexidine MOUTHWASH 0.12% 15 ML UDC SWISH SPIT SCH ×6 (02:21→20:19)
[2021-09-30] MEDS: cefTRIAXone 1 gm/50 mL NS BAG 1 GM/50 ML BAG IVPB SCH (02:52)
[2021-09-30 04:49] LABS: Hematocrit 50 % (35-47); Mean Corpuscular HGB Conc 32 g/dL (31-36); Mean Corpuscular Hemoglobin 32 pg (27-31); Mean Corpuscular Volume 100 fL (80-97); Mean Platelet Volume 10.7 fL (7.4-10.4); Platelet Count 121 10^3/uL (150-450); Red Blood Count 4.97 10^6 /uL (3.70-4.87); Red Cell Distribution Width 17 % (10-15); White Blood Count 9.4 10^3/uL (3.5-10.8)
[2021-09-30 05:08] LABS: Calcium 9.6 mg/dL (8.6-10.3); Magnesium 1.7 mg/dL (1.9-2.7); Phosphorus 2.7 mg/dL (2.5-5.0); eGFR CKD-EPI 105.3 (>60)
[2021-09-30] MEDS: methylPREDNISolone SOD 40 mg/ml 1 ml VIAL IV SCH ×2 (05:43→17:23)
[2021-09-30] MEDS: fentaNYL 100 mcg/2 ml 50 MCG/ML VIAL IV SLOW PU PRN (05:44)
[2021-09-30] MEDS: Albuterol/Ipratropium NEB.SOL (2.5/0.5 MG) 3 ML NEB.SOLN INH PRN ×4 (07:23→14:47)
[2021-09-30] MEDS ORDERED: Magnesium Sulfate IV 3 GM in NS 0.9% 100 ml BAG 100 ML IVPB ONE (07:25)
[2021-09-30] MEDS: Polyethylene Glycol 3350 17 GM PACKET PO SCH (07:53)
[2021-09-30] MEDS: Insulin GLARGINE 100 un/ml 10 ml VIAL SUBCUT SCH (07:53)
[2021-09-30] MEDS: Docusate LIQ 100 MG/10 ML UDC PO SCH ×2 (07:53→20:19)
[2021-09-30] MEDS: Senna TAB 8.6 mg TAB PO SCH ×2 (07:54→20:18)
[2021-09-30] MEDS: Carboxymethylcellulose/Glyceri 10 ML OPHTH.GEL lubricant eye gel BOTH EYES SCH ×2 (07:54→20:37)
[2021-09-30] MEDS: Dexmedetomidine 1,000 MCG in NS 0.9% 250 ml 240 ML IV SCH (10:52)
[2021-09-30] MEDS ORDERED: Propofol 10 mg/ml 100 ML BTL 100 ML IV SCH (11:00)
[2021-09-30] MEDS ORDERED: Albuterol/Ipratropium NEB.SOL (2.5/0.5 MG) 3 ML NEB.SOLN INH SCH (19:00)
[2021-09-30] MEDS: Albuterol/Ipratropium NEB.SOL (2.5/0.5 MG) 3 ML NEB.SOLN INH SCH ×2 (19:23→22:59)
[2021-09-30] MEDS: CMCS: Baricitinib 2 MG TAB (NF) PO SCH (20:18)
[2021-10-01] MEDS: Chlorhexidine MOUTHWASH 0.12% 15 ML UDC SWISH SPIT SCH ×6 (02:39→21:01)
[2021-10-01] MEDS: Pantoprazole VIAL 40 MG VIAL IV SCH (02:39)
[2021-10-01] MEDS: Albuterol/Ipratropium NEB.SOL (2.5/0.5 MG) 3 ML NEB.SOLN INH SCH ×3 (03:11→11:31)
[2021-10-01 05:16] LABS: Hematocrit 48 % (35-47); Hemoglobin 15.7 g/dL (12.0-16.0); Mean Corpuscular HGB Conc 33 g/dL (31-36); Mean Corpuscular Hemoglobin 32 pg (27-31); Mean Corpuscular Volume 98 fL (80-97); Mean Platelet Volume 11.1 fL (7.4-10.4); Platelet Count 139 10^3/uL (150-450); Red Blood Count 4.89 10^6 /uL (3.70-4.87); Red Cell Distribution Width 16 % (10-15); White Blood Count 9.2 10^3/uL (3.5-10.8)
[2021-10-01 05:39] LABS: Albumin/Globulin Ratio 0.8 (1-3); Calcium 9.2 mg/dL (8.6-10.3); Globulin 3.6 g/dL (2-4); Magnesium 1.9 mg/dL (1.9-2.7); Phosphorus 3.1 mg/dL (2.5-5.0); Total Bilirubin 1.2 mg/dL (0.2-1.0); Total Protein 6.6 g/dL (6.4-8.9)
[2021-10-01] MEDS: methylPREDNISolone SOD 40 mg/ml 1 ml VIAL IV SCH ×2 (06:14→16:34)
[2021-10-01] MEDS ORDERED: Magnesium Sulfate IV 1GM/100ML 1 GM/100 ML BAG IV ONE (06:45)
[2021-10-01] MEDS ORDERED: Magnesium Sulfate 2 gm BAG 2 GM/50 ML BAG IVPB ONE (07:32)
[2021-10-01] MEDS: Carboxymethylcellulose/Glyceri 10 ML OPHTH.GEL lubricant eye gel BOTH EYES SCH ×2 (07:58→21:01)
[2021-10-01] MEDS: Senna TAB 8.6 mg TAB PO SCH ×2 (07:59→22:59)
[2021-10-01] MEDS: Docusate LIQ 100 MG/10 ML UDC PO SCH ×2 (07:59→22:59)
[2021-10-01] MEDS: Polyethylene Glycol 3350 17 GM PACKET PO SCH (07:59)
[2021-10-01] MEDS: Insulin GLARGINE 100 un/ml 10 ml VIAL SUBCUT SCH (08:18)
[2021-10-01] MEDS: Dexmedetomidine 1,000 MCG in NS 0.9% 250 ml 240 ML IV SCH (09:51)
[2021-10-01] MEDS ORDERED: Furosemide 20 mg/2 ml IV VIAL IV ONE (17:00)
[2021-10-01] MEDS: CMCS: Baricitinib 2 MG TAB (NF) PO SCH (21:01)
[2021-10-02] MEDS: Chlorhexidine MOUTHWASH 0.12% 15 ML UDC SWISH SPIT SCH ×6 (00:22→20:45)
[2021-10-02] MEDS: Pantoprazole VIAL 40 MG VIAL IV SCH (02:33)
[2021-10-02 05:02] LABS: Hematocrit 45 % (35-47); Hemoglobin 14.8 g/dL (12.0-16.0); Mean Corpuscular HGB Conc 33 g/dL (31-36); Mean Corpuscular Hemoglobin 32 pg (27-31); Mean Corpuscular Volume 97 fL (80-97); Mean Platelet Volume 11.1 fL (7.4-10.4); Platelet Count 160 10^3/uL (150-450); Red Blood Count 4.67 10^6 /uL (3.70-4.87); Red Cell Distribution Width 17 % (10-15)
[2021-10-02 05:18] LABS: Albumin/Globulin Ratio 0.9 (1-3); Globulin 3.3 g/dL (2-4); Phosphorus 4.1 mg/dL (2.5-5.0); Potassium 4.1 mmol/L (3.5-5.0); Total Bilirubin 1.5 mg/dL (0.2-1.0); Total Protein 6.3 g/dL (6.4-8.9); eGFR CKD-EPI 111.1 (>60)
[2021-10-02] MEDS: methylPREDNISolone SOD 40 mg/ml 1 ml VIAL IV SCH ×2 (06:21→18:09)
[2021-10-02] MEDS: Polyethylene Glycol 3350 17 GM PACKET PO SCH (08:55)
[2021-10-02] MEDS: Carboxymethylcellulose/Glyceri 10 ML OPHTH.GEL lubricant eye gel BOTH EYES SCH ×2 (08:55→19:33)
[2021-10-02] MEDS: Docusate LIQ 100 MG/10 ML UDC PO SCH ×2 (08:55→19:33)
[2021-10-02] MEDS: Senna TAB 8.6 mg TAB PO SCH ×2 (08:56→19:33)
[2021-10-02] MEDS: Insulin GLARGINE 100 un/ml 10 ml VIAL SUBCUT SCH (09:14)
[2021-10-02] MEDS: Dexmedetomidine 1,000 MCG in NS 0.9% 250 ml 240 ML IV SCH (11:27)
[2021-10-02] MEDS: CMCS: Baricitinib 2 MG TAB (NF) PO SCH (19:33)
[2021-10-02] MEDS: fentaNYL 100 mcg/2 ml 50 MCG/ML VIAL IV SLOW PU PRN (21:19)
[2021-10-03] MEDS: Pantoprazole VIAL 40 MG VIAL IV SCH (01:10)
[2021-10-03] MEDS: Chlorhexidine MOUTHWASH 0.12% 15 ML UDC SWISH SPIT SCH ×6 (01:10→21:06)
[2021-10-03] MEDS: methylPREDNISolone SOD 40 mg/ml 1 ml VIAL IV SCH ×2 (04:16→17:02)
[2021-10-03 04:34] LABS: Hematocrit 44 % (35-47); Hemoglobin 14.3 g/dL (12.0-16.0); Mean Corpuscular HGB Conc 33 g/dL (31-36); Mean Corpuscular Hemoglobin 32 pg (27-31); Mean Corpuscular Volume 97 fL (80-97); Mean Platelet Volume 10.7 fL (7.4-10.4); Platelet Count 167 10^3/uL (150-450); Red Blood Count 4.54 10^6 /uL (3.70-4.87); Red Cell Distribution Width 17 % (10-15); White Blood Count 11.4 10^3/uL (3.5-10.8)
[2021-10-03] MEDS: Dexmedetomidine 1,000 MCG in NS 0.9% 250 ml 240 ML IV SCH ×2 (04:53→22:40)
[2021-10-03 04:55] LABS: Magnesium 1.8 mg/dL (1.9-2.7); Phosphorus 3.8 mg/dL (2.5-5.0); Potassium 3.8 mmol/L (3.5-5.0)
[2021-10-03] MEDS ORDERED: Potassium Chloride LIQUID 20 MEQ/15 ML LIQUID PO ONE (07:56)
[2021-10-03] MEDS ORDERED: Magnesium Sulfate 2 gm BAG 2 GM/50 ML BAG IVPB ONE (07:56)
[2021-10-03] MEDS: Polyethylene Glycol 3350 17 GM PACKET PO SCH (08:39)
[2021-10-03] MEDS: Insulin GLARGINE 100 un/ml 10 ml VIAL SUBCUT SCH (08:54)
[2021-10-03] MEDS: Docusate LIQ 100 MG/10 ML UDC PO SCH ×2 (08:55→19:36)
[2021-10-03] MEDS: Carboxymethylcellulose/Glyceri 10 ML OPHTH.GEL lubricant eye gel BOTH EYES SCH ×2 (08:55→19:14)
[2021-10-03] MEDS: Senna TAB 8.6 mg TAB PO SCH ×2 (08:56→19:14)
[2021-10-03] MEDS ORDERED: Furosemide 40 mg/4 ml IV VIAL IV SLOW PU ONE (15:15)
[2021-10-03] MEDS: CMCS: Baricitinib 2 MG TAB (NF) PO SCH (19:36)
[2021-10-04] MEDS: Chlorhexidine MOUTHWASH 0.12% 15 ML UDC SWISH SPIT SCH ×6 (01:12→20:33)
[2021-10-04] MEDS: Pantoprazole VIAL 40 MG VIAL IV SCH (01:12)
[2021-10-04] MEDS: methylPREDNISolone SOD 40 mg/ml 1 ml VIAL IV SCH ×2 (04:15→16:57)
[2021-10-04 04:33] LABS: ABS Basophils 0.1 10^3/ul (0-0.2); ABS Lymphocytes 0.9 10^3/ul (1.0-4.8); ABS Monocytes 1.1 10^3/ul (0-0.8); ABS Neutrophils 9.4 10^3/ul (1.5-7.7); Eosinophil % 0.1 %; Hematocrit 44 % (35-47); Hemoglobin 14.4 g/dL (12.0-16.0); Lymphocyte % 8.2 %; Mean Corpuscular HGB Conc 33 g/dL (31-36); Mean Corpuscular Hemoglobin 32 pg (27-31); Mean Corpuscular Volume 97 fL (80-97); Mean Platelet Volume 11.3 fL (7.4-10.4); Platelet Count 199 10^3/uL (150-450); Red Blood Count 4.48 10^6 /uL (3.70-4.87); Red Cell Distribution Width 16 % (10-15); White Blood Count 11.6 10^3/uL (3.5-10.8)
[2021-10-04 04:42] LABS: ALT 171 U/L (7-52); Albumin 3.1 g/dL (3.2-5.2); Albumin/Globulin Ratio 0.9 (1-3); Alkaline Phosphatase 69 U/L (35-149); Blood Urea Nitrogen 34 mg/dL (6-24); CO2 Carbon Dioxide 35 mmol/L (22-32); Calcium 9.3 mg/dL (8.6-10.3); Chloride 100 mmol/L (101-111); Globulin 3.6 g/dL (2-4); Glucose 115 mg/dL (70-100); Sodium 142 mmol/L (135-145); Total Protein 6.7 g/dL (6.4-8.9); eGFR CKD-EPI 105.3 (>60)
[2021-10-04 04:52] LABS: Anion Gap 7 mmol/L (2-11)
[2021-10-04 05:22] LABS: Magnesium 1.9 mg/dL (1.9-2.7); Phosphorus 4.1 mg/dL (2.5-5.0); Potassium Redraw 3.6 mmol/L (3.5-5.0)
[2021-10-04] MEDS: Senna TAB 8.6 mg TAB PO SCH ×2 (08:23→19:45)
[2021-10-04] MEDS: Insulin GLARGINE 100 un/ml 10 ml VIAL SUBCUT SCH (08:28)
[2021-10-04] MEDS: Carboxymethylcellulose/Glyceri 10 ML OPHTH.GEL lubricant eye gel BOTH EYES SCH ×2 (08:29→19:45)
[2021-10-04] MEDS: Docusate LIQ 100 MG/10 ML UDC PO SCH ×2 (08:29→19:45)
[2021-10-04] MEDS: Polyethylene Glycol 3350 17 GM PACKET PO SCH (08:30)
[2021-10-04] MEDS ORDERED: KCL 20 MEQ/100 ML IVPREMIX 20 MEQ/100 ML BAG IV ONE (11:03)
[2021-10-04] MEDS: Dexmedetomidine 1,000 MCG in NS 0.9% 250 ml 240 ML IV SCH (13:40)
[2021-10-05 01:47] LABS: Urine Appearance Clear; Urine Bilirubin Negative (Negative); Urine Blood Negative (Negative); Urine Color Yellow; Urine Glucose Negative (Negative); Urine Ketones Negative (Negative); Urine Nitrite Negative (Negative); Urine Protein Negative (Negative); Urine Specific Gravity 1.019 (1.002-1.030); Urine Urobilinogen Negative (Negative)
[2021-10-05] MEDS: Pantoprazole VIAL 40 MG VIAL IV SCH (02:36)
[2021-10-05] MEDS: Chlorhexidine MOUTHWASH 0.12% 15 ML UDC SWISH SPIT SCH ×6 (02:36→20:27)
[2021-10-05] MEDS: methylPREDNISolone SOD 40 mg/ml 1 ml VIAL IV SCH ×2 (04:42→17:40)
[2021-10-05 04:46] LABS: ABS Eosinophils 0.1 10^3/ul (0-0.6); ABS Lymphocytes 0.8 10^3/ul (1.0-4.8); ABS Monocytes 1.2 10^3/ul (0-0.8); ABS Neutrophils 9.4 10^3/ul (1.5-7.7); Eosinophil % 0.6 %; Hematocrit 43 % (35-47); Hemoglobin 14.2 g/dL (12.0-16.0); Lymphocyte % 7.3 %; Mean Corpuscular HGB Conc 33 g/dL (31-36); Mean Corpuscular Hemoglobin 32 pg (27-31); Mean Corpuscular Volume 97 fL (80-97); Mean Platelet Volume 11.3 fL (7.4-10.4); Platelet Count 193 10^3/uL (150-450); Red Blood Count 4.47 10^6 /uL (3.70-4.87); Red Cell Distribution Width 16 % (10-15); White Blood Count 11.6 10^3/uL (3.5-10.8)
[2021-10-05] MEDS: Dexmedetomidine 1,000 MCG in NS 0.9% 250 ml 240 ML IV SCH (05:13)
[2021-10-05 06:47] LABS: Calcium 9.1 mg/dL (8.6-10.3); Magnesium 1.8 mg/dL (1.9-2.7); Potassium 3.9 mmol/L (3.5-5.0)
[2021-10-05 06:53] LABS: Phosphorus 4.1 mg/dL (2.5-5.0); eGFR CKD-EPI 109.5 (>60)
[2021-10-05] MEDS: Docusate LIQ 100 MG/10 ML UDC PO SCH ×2 (08:58→20:24)
[2021-10-05] MEDS: Polyethylene Glycol 3350 17 GM PACKET PO SCH (08:58)
[2021-10-05] MEDS: Carboxymethylcellulose/Glyceri 10 ML OPHTH.GEL lubricant eye gel BOTH EYES SCH ×2 (08:58→20:27)
[2021-10-05] MEDS: Insulin GLARGINE 100 un/ml 10 ml VIAL SUBCUT SCH (08:58)
[2021-10-05] MEDS ORDERED: Furosemide 40 mg/4 ml IV VIAL IV ONE (09:07)
[2021-10-05] MEDS ORDERED: Magnesium Sulfate 2 gm BAG 2 GM/50 ML BAG IVPB ONE (09:07)
[2021-10-05] MEDS ORDERED: Potassium Chloride LIQUID 20 MEQ/15 ML LIQUID PO ONE (09:07)
[2021-10-05] MEDS: Senna TAB 8.6 mg TAB PO SCH ×2 (10:03→20:24)
[2021-10-05] MEDS ORDERED: Propofol 10 MG/ML 20 ML BTL ONE (12:29)
[2021-10-05 14:44] LABS: PCO2 Arterial 54 mmHg (35-45); PO2 Arterial 61 mmHg (80-100)
[2021-10-05 22:48] LABS: ABS Lymphocytes 0.4 10^3/ul (1.0-4.8); ABS Monocytes 0.9 10^3/ul (0-0.8); ABS Neutrophils 13.1 10^3/ul (1.5-7.7); Eosinophil % 0.1 %; Hematocrit 47 % (35-47); Hemoglobin 15.6 g/dL (12.0-16.0); Lymphocyte % 2.5 %; Mean Corpuscular HGB Conc 34 g/dL (31-36); Mean Corpuscular Hemoglobin 32 pg (27-31); Mean Corpuscular Volume 97 fL (80-97); Mean Platelet Volume 11.1 fL (7.4-10.4); Platelet Count 223 10^3/uL (150-450); Red Blood Count 4.83 10^6 /uL (3.70-4.87); Red Cell Distribution Width 16 % (10-15); White Blood Count 14.4 10^3/uL (3.5-10.8)
[2021-10-06] MEDS: Pantoprazole VIAL 40 MG VIAL IV SCH (01:36)
[2021-10-06] MEDS: Chlorhexidine MOUTHWASH 0.12% 15 ML UDC SWISH SPIT SCH ×2 (01:36→06:29)
[2021-10-06 05:15] LABS: ABS Eosinophils 0.1 10^3/ul (0-0.6); ABS Lymphocytes 0.7 10^3/ul (1.0-4.8); ABS Monocytes 1.5 10^3/ul (0-0.8); ABS Neutrophils 10.5 10^3/ul (1.5-7.7); Eosinophil % 0.4 %; Hematocrit 46 % (35-47); Hemoglobin 15.2 g/dL (12.0-16.0); Lymphocyte % 5.4 %; Mean Corpuscular HGB Conc 33 g/dL (31-36); Mean Corpuscular Hemoglobin 32 pg (27-31); Mean Corpuscular Volume 97 fL (80-97); Mean Platelet Volume 10.8 fL (7.4-10.4); Platelet Count 218 10^3/uL (150-450); Red Blood Count 4.78 10^6 /uL (3.70-4.87); Red Cell Distribution Width 16 % (10-15); White Blood Count 12.7 10^3/uL (3.5-10.8)
[2021-10-06 05:32] LABS: Calcium 9.8 mg/dL (8.6-10.3); Magnesium 2.1 mg/dL (1.9-2.7); Phosphorus 3.7 mg/dL (2.5-5.0); Potassium 3.6 mmol/L (3.5-5.0)
[2021-10-06] MEDS: methylPREDNISolone SOD 40 mg/ml 1 ml VIAL IV SCH ×2 (06:29→18:25)
[2021-10-06] MEDS: Polyethylene Glycol 3350 17 GM PACKET PO SCH (09:17)
[2021-10-06] MEDS: Senna TAB 8.6 mg TAB PO SCH ×2 (09:17→20:06)
[2021-10-06] MEDS: Docusate LIQ 100 MG/10 ML UDC PO SCH ×2 (09:17→20:06)
[2021-10-06] MEDS: Potassium Chloride LIQUID 20 MEQ/15 ML LIQUID PO ONE ×2 (09:18→09:19)
[2021-10-06 09:46] LABS: Albumin 3.5 g/dL (3.2-5.2); Albumin/Globulin Ratio 0.9 (1-3); Globulin 3.9 g/dL (2-4); Indirect Bilirubin 1.7 mg/dL (0.3-1.0); Total Bilirubin 2.7 mg/dL (0.2-1.0); Total Protein 7.4 g/dL (6.4-8.9)
[2021-10-06] MEDS ORDERED: Potassium Chlor 20 meq TAB.ER PO ONE (10:13)
[2021-10-06] MEDS: Insulin GLARGINE 100 un/ml 10 ml VIAL SUBCUT SCH (10:23)
[2021-10-06] MEDS ORDERED: Potassium Chloride LIQUID 20 MEQ/15 ML LIQUID PO ONE (10:30)
[2021-10-06] MEDS: Carboxymethylcellulose/Glyceri 10 ML OPHTH.GEL lubricant eye gel BOTH EYES SCH (10:30)
[2021-10-06] MEDS ORDERED: Furosemide 40 mg/4 ml IV VIAL IV SLOW PU ONE (12:21)
[2021-10-07] MEDS: Pantoprazole VIAL 40 MG VIAL IV SCH (01:53)
[2021-10-07] MEDS: Docusate LIQ 100 MG/10 ML UDC PO SCH ×2 (10:07→19:53)
[2021-10-07] MEDS: Senna TAB 8.6 mg TAB PO SCH ×2 (10:08→19:51)
[2021-10-07] MEDS: Polyethylene Glycol 3350 17 GM PACKET PO SCH (10:08)
[2021-10-07] MEDS: Insulin GLARGINE 100 un/ml 10 ml VIAL SUBCUT SCH (10:08)
[2021-10-07 10:29] LABS: Albumin 3.9 g/dL (3.2-5.2); CO2 Carbon Dioxide 26 mmol/L (22-32); Chloride 104 mmol/L (101-111); Sodium 140 mmol/L (135-145)
[2021-10-07 10:35] LABS: Albumin/Globulin Ratio 0.9 (1-3); Alkaline Phosphatase 77 U/L (35-149); Blood Urea Nitrogen 39 mg/dL (6-24); Globulin 4.3 g/dL (2-4); Glucose 85 mg/dL (70-100); Total Protein 8.2 g/dL (6.4-8.9)
[2021-10-07 11:00] LABS: Anion Gap 10 mmol/L (2-11)
[2021-10-07 11:10] LABS: ABS Eosinophils 0.1 10^3/ul (0-0.6); ABS Lymphocytes 0.8 10^3/ul (1.0-4.8); ABS Monocytes 1.2 10^3/ul (0-0.8); ABS Neutrophils 10.6 10^3/ul (1.5-7.7); Eosinophil % 0.7 %; Hematocrit 48 % (35-47); Hemoglobin 15.7 g/dL (12.0-16.0); Lymphocyte % 6.4 %; Mean Corpuscular HGB Conc 33 g/dL (31-36); Mean Corpuscular Hemoglobin 32 pg (27-31); Mean Corpuscular Volume 97 fL (80-97); Mean Platelet Volume 10.9 fL (7.4-10.4); Nucleated Red Blood Cells % 0.1; Platelet Count 230 10^3/uL (150-450); Red Blood Count 4.93 10^6 /uL (3.70-4.87); Red Cell Distribution Width 16 % (10-15); White Blood Count 12.7 10^3/uL (3.5-10.8)
[2021-10-07 11:23] LABS: ALT 574 U/L (7-52)
[2021-10-07 11:45] LABS: Potassium Redraw 3.6 mmol/L (3.5-5.0)
[2021-10-07 15:18] LABS: Urine Appearance Clear; Urine Bilirubin Negative (Negative); Urine Blood Negative (Negative); Urine Color Amber; Urine Glucose Negative (Negative); Urine Ketones Negative (Negative); Urine Nitrite Negative (Negative); Urine Protein 1+(30 mg/dL) (Negative); Urine Specific Gravity 1.025 (1.002-1.030); Urine Urobilinogen Positive (Negative)
[2021-10-07 15:24] LABS: Urine Amorphous Crystals Present (Absent); Urine Bacteria 3+ (Absent); Urine Red Blood Cell Trace(0-2/hpf) (Absent); Urine Squamous Epithelial Cell Present (Absent); Urine White Blood Cell Trace(0-5/hpf) (Absent)
[2021-10-08] MEDS: Pantoprazole VIAL 40 MG VIAL IV SCH (01:49)
[2021-10-08 06:45] LABS: Albumin 3.7 g/dL (3.2-5.2); CO2 Carbon Dioxide 32 mmol/L (22-32); Chloride 104 mmol/L (101-111); Sodium 143 mmol/L (135-145)
[2021-10-08 06:48] LABS: ABS Eosinophils 0.1 10^3/ul (0-0.6); ABS Lymphocytes 0.8 10^3/ul (1.0-4.8); ABS Monocytes 0.9 10^3/ul (0-0.8); ABS Neutrophils 8.4 10^3/ul (1.5-7.7); Eosinophil % 1.4 %; Hematocrit 44 % (35-47); Hemoglobin 14.9 g/dL (12.0-16.0); Mean Corpuscular HGB Conc 34 g/dL (31-36); Mean Corpuscular Hemoglobin 33 pg (27-31); Mean Corpuscular Volume 97 fL (80-97); Mean Platelet Volume 10.5 fL (7.4-10.4); Nucleated Red Blood Cells % 0.1; Platelet Count 197 10^3/uL (150-450); Red Blood Count 4.55 10^6 /uL (3.70-4.87); Red Cell Distribution Width 16 % (10-15); White Blood Count 10.2 10^3/uL (3.5-10.8)
[2021-10-08 06:51] LABS: Alkaline Phosphatase 76 U/L (35-149); Blood Urea Nitrogen 38 mg/dL (6-24); Globulin 3.7 g/dL (2-4); Glucose 80 mg/dL (70-100); Total Protein 7.4 g/dL (6.4-8.9); eGFR CKD-EPI 105.3 (>60)
[2021-10-08 07:11] LABS: Anion Gap 7 mmol/L (2-11)
[2021-10-08] MEDS: Docusate LIQ 100 MG/10 ML UDC PO SCH ×2 (08:12→20:00)
[2021-10-08] MEDS: Polyethylene Glycol 3350 17 GM PACKET PO SCH (08:12)
[2021-10-08] MEDS: Senna TAB 8.6 mg TAB PO SCH ×2 (08:12→20:01)
[2021-10-08] MEDS: Insulin GLARGINE 100 un/ml 10 ml VIAL SUBCUT SCH (08:14)
[2021-10-08 08:48] LABS: Phosphorus 3.8 mg/dL (2.5-5.0); Potassium Redraw 3.6 mmol/L (3.5-5.0)
[2021-10-08 09:22] LABS: ALT 601 U/L (7-52)
[2021-10-08] MEDS ORDERED: Furosemide 20 mg/2 ml IV VIAL IV ONE (09:35)
[2021-10-08] MEDS ORDERED: Potassium Chlor 20 meq TAB.ER PO ONE (09:35)
[2021-10-08] MEDS: KCL premix 10 MEQ/50 ML x 4 RUNS IV SCH ×4 (11:40→15:40)
[2021-10-08] MEDS ORDERED: Acetylcysteine IV 15,000 MG in D5W 250 ml BAG 200 ML IV ONE (23:00)
[2021-10-08] MEDS ORDERED: Acetylcysteine IV 5,000 MG in D5W 500 ml BAG 500 ML IV ONE (23:40)
[2021-10-09] MEDS: Pantoprazole VIAL 40 MG VIAL IV SCH (02:00)
[2021-10-09] MEDS ORDERED: Acetylcysteine IV 10,000 MG in D5W 1000 ml BAG 1,000 ML IV ONE (04:00)
[2021-10-09 05:02] LABS: Hematocrit 45 % (35-47); Hemoglobin 14.6 g/dL (12.0-16.0); Mean Corpuscular HGB Conc 33 g/dL (31-36); Mean Corpuscular Hemoglobin 32 pg (27-31); Mean Corpuscular Volume 97 fL (80-97); Mean Platelet Volume 10.7 fL (7.4-10.4); Platelet Count 200 10^3/uL (150-450); Red Blood Count 4.59 10^6 /uL (3.70-4.87); Red Cell Distribution Width 16 % (10-15); White Blood Count 9.7 10^3/uL (3.5-10.8)
[2021-10-09 05:15] LABS: ABS Eosinophils 0.1 10^3/ul (0-0.6); ABS Lymphocytes 0.7 10^3/ul (1.0-4.8); ABS Monocytes 0.9 10^3/ul (0-0.8); Eosinophil % 1.4 %; Lymphocyte % 7.1 %
[2021-10-09 05:17] LABS: Calcium 9.7 mg/dL (8.6-10.3); Magnesium 1.9 mg/dL (1.9-2.7); Phosphorus 3.6 mg/dL (2.5-5.0); Potassium 3.3 mmol/L (3.5-5.0); eGFR CKD-EPI 106.6 (>60)
[2021-10-09] MEDS ORDERED: Potassium Chlor 20 meq TAB.ER PO ONE ×3 (07:11→14:00)
[2021-10-09] MEDS: Docusate LIQ 100 MG/10 ML UDC PO SCH ×2 (08:23→18:59)
[2021-10-09] MEDS: Polyethylene Glycol 3350 17 GM PACKET PO SCH (08:23)
[2021-10-09] MEDS: Senna TAB 8.6 mg TAB PO SCH ×2 (08:24→18:59)
[2021-10-09] MEDS ORDERED: Furosemide 40 mg/4 ml IV VIAL IV ONE (10:13)
[2021-10-09] MEDS: Insulin GLARGINE 100 un/ml 10 ml VIAL SUBCUT SCH (10:29)
[2021-10-09 15:07] LABS: Albumin 3.9 g/dL (3.2-5.2); Globulin 3.8 g/dL (2-4); Total Protein 7.7 g/dL (6.4-8.9)
[2021-10-09 15:08] LABS: Direct Bilirubin 0.8 mg/dL (0.03-0.18); Indirect Bilirubin 1.5 mg/dL (0.3-1.0); Total Bilirubin 2.3 mg/dL (0.2-1.0)
[2021-10-10] MEDS: Pantoprazole VIAL 40 MG VIAL IV SCH (01:36)
[2021-10-10 09:09] LABS: ABS Eosinophils 0.1 10^3/ul (0-0.6); ABS Monocytes 0.9 10^3/ul (0-0.8); ABS Neutrophils 7.9 10^3/ul (1.5-7.7); Eosinophil % 1.2 %; Hematocrit 46 % (35-47); Hemoglobin 15.3 g/dL (12.0-16.0); Lymphocyte % 10.1 %; Mean Corpuscular HGB Conc 34 g/dL (31-36); Mean Corpuscular Hemoglobin 32 pg (27-31); Mean Corpuscular Volume 96 fL (80-97); Mean Platelet Volume 11.1 fL (7.4-10.4); Platelet Count 190 10^3/uL (150-450); Red Blood Count 4.75 10^6 /uL (3.70-4.87); Red Cell Distribution Width 16 % (10-15); White Blood Count 9.9 10^3/uL (3.5-10.8)
[2021-10-10 09:25] LABS: Albumin 3.9 g/dL (3.2-5.2); Calcium 10.5 mg/dL (8.6-10.3); Globulin 4.1 g/dL (2-4); Potassium 3.7 mmol/L (3.5-5.0); eGFR CKD-EPI 102.9 (>60)
[2021-10-10 09:26] LABS: Total Bilirubin 2.2 mg/dL (0.2-1.0)
[2021-10-10] MEDS: Docusate LIQ 100 MG/10 ML UDC PO SCH ×2 (10:22→20:16)
[2021-10-10] MEDS: Polyethylene Glycol 3350 17 GM PACKET PO SCH (10:23)
[2021-10-10] MEDS: Senna TAB 8.6 mg TAB PO SCH ×2 (11:44→20:25)
[2021-10-11] MEDS: Pantoprazole VIAL 40 MG VIAL IV SCH (03:29)
[2021-10-11 05:17] LABS: ABS Basophils 0.1 10^3/ul (0-0.2); ABS Eosinophils 0.2 10^3/ul (0-0.6); ABS Lymphocytes 1.2 10^3/ul (1.0-4.8); ABS Monocytes 0.9 10^3/ul (0-0.8); ABS Neutrophils 8.9 10^3/ul (1.5-7.7); Eosinophil % 1.8 %; Hematocrit 45 % (35-47); Hemoglobin 14.8 g/dL (12.0-16.0); Lymphocyte % 10.6 %; Mean Corpuscular HGB Conc 33 g/dL (31-36); Mean Corpuscular Hemoglobin 32 pg (27-31); Mean Corpuscular Volume 97 fL (80-97); Mean Platelet Volume 11.1 fL (7.4-10.4); Platelet Count 175 10^3/uL (150-450); Red Blood Count 4.68 10^6 /uL (3.70-4.87); Red Cell Distribution Width 16 % (10-15); White Blood Count 11.2 10^3/uL (3.5-10.8)
[2021-10-11 05:33] LABS: Albumin/Globulin Ratio 1.1 (1-3); Calcium 10.5 mg/dL (8.6-10.3); Globulin 3.8 g/dL (2-4); Potassium 3.5 mmol/L (3.5-5.0); Total Protein 7.8 g/dL (6.4-8.9)
[2021-10-11] MEDS: Senna TAB 8.6 mg TAB PO SCH ×2 (11:29→20:04)
[2021-10-11] MEDS: Docusate LIQ 100 MG/10 ML UDC PO SCH ×2 (11:29→20:04)
[2021-10-11] MEDS: Polyethylene Glycol 3350 17 GM PACKET PO SCH (11:31)
[2021-10-11] MEDS: Albuterol/Ipratropium NEB.SOL (2.5/0.5 MG) 3 ML NEB.SOLN INH PRN (20:15)
[2021-10-11] MEDS: Acetylcysteine INHALATION SOL 200 MG/ML NEB.SOLN 10 ML INH SCH (20:16)
[2021-10-12] MEDS: Acetylcysteine INHALATION SOL 200 MG/ML NEB.SOLN 10 ML INH SCH ×2 (02:00→07:44)
[2021-10-12] MEDS: Albuterol/Ipratropium NEB.SOL (2.5/0.5 MG) 3 ML NEB.SOLN INH PRN (02:01)
[2021-10-12] MEDS: Pantoprazole VIAL 40 MG VIAL IV SCH (03:30)
[2021-10-12 07:13] LABS: ABS Eosinophils 0.2 10^3/ul (0-0.6); ABS Lymphocytes 1.3 10^3/ul (1.0-4.8); ABS Monocytes 0.7 10^3/ul (0-0.8); Eosinophil % 1.8 %; Hematocrit 42 % (35-47); Lymphocyte % 12.4 %; Mean Corpuscular HGB Conc 34 g/dL (31-36); Mean Corpuscular Hemoglobin 33 pg (27-31); Mean Corpuscular Volume 97 fL (80-97); Mean Platelet Volume 11.1 fL (7.4-10.4); Platelet Count 151 10^3/uL (150-450); Red Blood Count 4.27 10^6 /uL (3.70-4.87); Red Cell Distribution Width 16 % (10-15); White Blood Count 10.2 10^3/uL (3.5-10.8)
[2021-10-12 07:29] LABS: Albumin 3.6 g/dL (3.2-5.2); Albumin/Globulin Ratio 1.1 (1-3); Calcium 9.7 mg/dL (8.6-10.3); Globulin 3.4 g/dL (2-4); Potassium 3.1 mmol/L (3.5-5.0); Total Bilirubin 1.6 mg/dL (0.2-1.0); eGFR CKD-EPI 103.3 (>60)
[2021-10-12] MEDS: Polyethylene Glycol 3350 17 GM PACKET PO SCH (08:16)
[2021-10-12] MEDS: Docusate LIQ 100 MG/10 ML UDC PO SCH ×3 (08:16→20:00)
[2021-10-12] MEDS ORDERED: Potassium Chloride LIQUID 20 MEQ/15 ML LIQUID PO ONE (08:23)
[2021-10-12] MEDS: Senna TAB 8.6 mg TAB PO SCH ×3 (08:28→19:59)
[2021-10-12 09:32] LABS: Free T3 3.3 pg/mL (2.5-3.9)
[2021-10-12 09:33] LABS: Free T4 0.98 ng/dL (0.61-1.12)
[2021-10-12] MEDS ORDERED: Acetylcysteine INHALATION SOL 200 MG/ML NEB.SOLN 10 ML INH PRN (11:30)
[2021-10-13] MEDS: Pantoprazole VIAL 40 MG VIAL IV SCH (02:04)
[2021-10-13 06:44] LABS: Albumin 3.7 g/dL (3.2-5.2); Albumin/Globulin Ratio 1.1 (1-3); Globulin 3.5 g/dL (2-4); Magnesium 1.9 mg/dL (1.9-2.7); Potassium 3.6 mmol/L (3.5-5.0); Total Bilirubin 1.3 mg/dL (0.2-1.0); Total Protein 7.2 g/dL (6.4-8.9); eGFR CKD-EPI 102.5 (>60)
[2021-10-13 07:57] LABS: ABS Eosinophils 0.3 10^3/ul (0-0.6); ABS Lymphocytes 1.5 10^3/ul (1.0-4.8); ABS Monocytes 0.7 10^3/ul (0-0.8); ABS Neutrophils 7.9 10^3/ul (1.5-7.7); Eosinophil % 2.5 %; Hematocrit 43 % (35-47); Mean Corpuscular HGB Conc 33 g/dL (31-36); Mean Corpuscular Hemoglobin 32 pg (27-31); Mean Corpuscular Volume 97 fL (80-97); Mean Platelet Volume 11.2 fL (7.4-10.4); Platelet Count 153 10^3/uL (150-450); Red Blood Count 4.41 10^6 /uL (3.70-4.87); Red Cell Distribution Width 16 % (10-15); White Blood Count 10.4 10^3/uL (3.5-10.8)
[2021-10-13] MEDS ORDERED: Mometasone/Formoter 100/5 MDI INH PRN (09:35)
[2021-10-13] MEDS: Docusate LIQ 100 MG/10 ML UDC PO SCH ×2 (10:39→20:21)
[2021-10-13] MEDS: Senna TAB 8.6 mg TAB PO SCH ×2 (10:41→20:21)
[2021-10-13] MEDS: Polyethylene Glycol 3350 17 GM PACKET PO SCH (10:42)
[2021-10-13] MEDS: Mometasone/Formoter 100/5 MDI INH SCH ×2 (11:16→20:41)
[2021-10-14] MEDS: Pantoprazole VIAL 40 MG VIAL IV SCH (01:30)
[2021-10-14 06:24] LABS: ABS Basophils 0.1 10^3/ul (0-0.2); ABS Eosinophils 0.3 10^3/ul (0-0.6); ABS Lymphocytes 1.4 10^3/ul (1.0-4.8); ABS Monocytes 0.7 10^3/ul (0-0.8); ABS Neutrophils 6.7 10^3/ul (1.5-7.7); Eosinophil % 3.7 %; Hematocrit 44 % (35-47); Hemoglobin 14.4 g/dL (12.0-16.0); Lymphocyte % 15.1 %; Mean Corpuscular HGB Conc 33 g/dL (31-36); Mean Corpuscular Hemoglobin 32 pg (27-31); Mean Corpuscular Volume 95 fL (80-97); Nucleated Red Blood Cells % 0.1; Platelet Count 149 10^3/uL (150-450); Red Blood Count 4.56 10^6 /uL (3.70-4.87); Red Cell Distribution Width 16 % (10-15); White Blood Count 9.2 10^3/uL (3.5-10.8)
[2021-10-14 06:37] LABS: Albumin 3.7 g/dL (3.2-5.2); Albumin/Globulin Ratio 1.1 (1-3); Calcium 9.9 mg/dL (8.6-10.3); Globulin 3.4 g/dL (2-4); Potassium 3.5 mmol/L (3.5-5.0); Total Bilirubin 1.4 mg/dL (0.2-1.0); Total Protein 7.1 g/dL (6.4-8.9); eGFR CKD-EPI 105.3 (>60)
[2021-10-14] MEDS ORDERED: LORazepam 2 mg VIAL 1 ml IV PUSH ONE ×2 (07:46→17:00)
[2021-10-14] MEDS ORDERED: Lorazepam PYXIS KEY PRN ×2 (07:46→15:35)
[2021-10-14] MEDS: Mometasone/Formoter 100/5 MDI INH SCH ×2 (07:55→19:55)
[2021-10-14] MEDS: Polyethylene Glycol 3350 17 GM PACKET PO SCH (11:54)
[2021-10-14] MEDS: Docusate LIQ 100 MG/10 ML UDC PO SCH ×3 (11:55→20:14)
[2021-10-14] MEDS: Senna TAB 8.6 mg TAB PO SCH ×2 (11:57→20:13)
[2021-10-14 12:40] LABS: Rapid COVID-19 Molecular Undetected (Undetected)
[2021-10-14] MEDS ORDERED: Haloperidol 5 mg/ml SDV IV/IM 5 MG/ML AMP IV SLOW PU ONE ×2 (20:41→21:06)
[2021-10-14] MEDS ORDERED: Haloperidol 5 mg/ml SDV IV/IM 5 MG/ML AMP ONE (20:45)
[2021-10-15] MEDS: Pantoprazole VIAL 40 MG VIAL IV SCH (04:10)
[2021-10-15] MEDS: Mometasone/Formoter 100/5 MDI INH SCH ×2 (07:43→19:18)
[2021-10-15 08:31] LABS: ABS Eosinophils 0.5 10^3/ul (0-0.6); ABS Lymphocytes 1.1 10^3/ul (1.0-4.8); ABS Monocytes 0.6 10^3/ul (0-0.8); ABS Neutrophils 5.7 10^3/ul (1.5-7.7); Eosinophil % 6.9 %; Hematocrit 43 % (35-47); Hemoglobin 14.5 g/dL (12.0-16.0); Lymphocyte % 13.7 %; Mean Corpuscular HGB Conc 34 g/dL (31-36); Mean Corpuscular Hemoglobin 33 pg (27-31); Mean Corpuscular Volume 97 fL (80-97); Mean Platelet Volume 10.5 fL (7.4-10.4); Nucleated Red Blood Cells % 0.1; Platelet Count 130 10^3/uL (150-450); Red Blood Count 4.45 10^6 /uL (3.70-4.87); Red Cell Distribution Width 16 % (10-15)
[2021-10-15 08:50] LABS: Albumin 3.5 g/dL (3.2-5.2); Calcium 9.7 mg/dL (8.6-10.3); Globulin 3.4 g/dL (2-4); Total Bilirubin 1.2 mg/dL (0.2-1.0); Total Protein 6.9 g/dL (6.4-8.9); eGFR CKD-EPI 103.7 (>60)
[2021-10-15 09:42] LABS: Potassium 3.5 mmol/L (3.5-5.0)
[2021-10-15] MEDS: Senna TAB 8.6 mg TAB PO SCH ×2 (11:00→20:55)
[2021-10-15] MEDS: Polyethylene Glycol 3350 17 GM PACKET PO SCH (11:00)
[2021-10-15] MEDS: Docusate LIQ 100 MG/10 ML UDC PO SCH ×2 (11:08→20:54)
[2021-10-15] MEDS ORDERED: Haloperidol 5 mg/ml SDV IV/IM 5 MG/ML AMP IV SLOW PU ONE (18:49)
[2021-10-16] MEDS: Pantoprazole VIAL 40 MG VIAL IV SCH (01:27)
[2021-10-16] MEDS: Mometasone/Formoter 100/5 MDI INH SCH ×2 (08:03→19:50)
[2021-10-16] MEDS: Docusate LIQ 100 MG/10 ML UDC PO SCH ×2 (10:37→20:51)
[2021-10-16] MEDS: Polyethylene Glycol 3350 17 GM PACKET PO SCH (10:37)
[2021-10-16] MEDS: Senna TAB 8.6 mg TAB PO SCH ×2 (10:38→20:53)
[2021-10-16] MEDS ORDERED: LORazepam 2 mg VIAL 1 ml IV PUSH ONE (21:09)
[2021-10-16] MEDS ORDERED: Lorazepam PYXIS KEY PRN (21:09)
[2021-10-17] MEDS: Pantoprazole VIAL 40 MG VIAL IV SCH (02:08)
[2021-10-17] MEDS ORDERED: LORazepam 2 mg VIAL 1 ml IV PUSH ONE (04:52)
[2021-10-17] MEDS: Mometasone/Formoter 100/5 MDI INH SCH ×2 (07:42→19:40)
[2021-10-17] MEDS: Docusate LIQ 100 MG/10 ML UDC PO SCH ×2 (08:03→19:51)
[2021-10-17] MEDS: Polyethylene Glycol 3350 17 GM PACKET PO SCH (08:03)
[2021-10-17] MEDS: Senna TAB 8.6 mg TAB PO SCH ×2 (08:04→19:51)
[2021-10-17] MEDS: Nicotine PATCH 7 MG/24 HR PATCH TRANSDERM SCH (13:10)
[2021-10-18] MEDS ORDERED: LORazepam 2 mg VIAL 1 ml IV PUSH PRN ×2 (00:52→10:19)
[2021-10-18] MEDS ORDERED: Lorazepam PYXIS KEY PRN ×2 (00:52→10:19)
[2021-10-18] MEDS: Pantoprazole VIAL 40 MG VIAL IV SCH (01:41)
[2021-10-18 07:07] LABS: ABS Basophils 0.1 10^3/ul (0-0.2); ABS Eosinophils 0.5 10^3/ul (0-0.6); ABS Lymphocytes 1.2 10^3/ul (1.0-4.8); ABS Monocytes 0.7 10^3/ul (0-0.8); ABS Neutrophils 4.7 10^3/ul (1.5-7.7); Eosinophil % 7.5 %; Hematocrit 43 % (35-47); Hemoglobin 14.3 g/dL (12.0-16.0); Lymphocyte % 17.1 %; Mean Corpuscular HGB Conc 33 g/dL (31-36); Mean Corpuscular Hemoglobin 32 pg (27-31); Mean Corpuscular Volume 98 fL (80-97); Mean Platelet Volume 10.9 fL (7.4-10.4); Platelet Count 110 10^3/uL (150-450); Red Blood Count 4.44 10^6 /uL (3.70-4.87); Red Cell Distribution Width 17 % (10-15); White Blood Count 7.3 10^3/uL (3.5-10.8)
[2021-10-18 07:21] LABS: Albumin 3.5 g/dL (3.2-5.2); Albumin/Globulin Ratio 1.1 (1-3); Calcium 9.8 mg/dL (8.6-10.3); Globulin 3.2 g/dL (2-4); Potassium 3.8 mmol/L (3.5-5.0); Total Bilirubin 0.8 mg/dL (0.2-1.0); Total Protein 6.7 g/dL (6.4-8.9)
[2021-10-18] MEDS: Mometasone/Formoter 100/5 MDI INH SCH ×2 (08:02→20:49)
[2021-10-18] MEDS: Senna TAB 8.6 mg TAB PO SCH ×2 (09:59→20:35)
[2021-10-18] MEDS: Docusate LIQ 100 MG/10 ML UDC PO SCH ×3 (10:00→20:43)
[2021-10-18] MEDS: Nicotine PATCH 7 MG/24 HR PATCH TRANSDERM SCH (10:00)
[2021-10-18] MEDS: Polyethylene Glycol 3350 17 GM PACKET PO SCH (10:00)
[2021-10-19] MEDS: Mometasone/Formoter 100/5 MDI INH SCH ×2 (07:26→19:31)
[2021-10-19] MEDS: Senna TAB 8.6 mg TAB PO SCH ×2 (10:00→20:23)
[2021-10-19] MEDS: Pantoprazole VIAL 40 MG VIAL IV SCH (10:02)
[2021-10-19] MEDS: Docusate LIQ 100 MG/10 ML UDC PO SCH ×2 (10:02→20:23)
[2021-10-19] MEDS: Nicotine PATCH 7 MG/24 HR PATCH TRANSDERM SCH (10:02)
[2021-10-19] MEDS: Polyethylene Glycol 3350 17 GM PACKET PO SCH (10:06)
[2021-10-19] MEDS ORDERED: LORazepam 2 mg VIAL 1 ml IV PUSH ONE (23:38)
[2021-10-19] MEDS ORDERED: Lorazepam PYXIS KEY PRN (23:38)
[2021-10-19] MEDS ORDERED: Haloperidol 5 mg/ml SDV IV/IM 5 MG/ML AMP IV SLOW PU ONE (23:40)
[2021-10-20] MEDS: Mometasone/Formoter 100/5 MDI INH SCH ×2 (07:31→19:58)
[2021-10-20] MEDS: Senna TAB 8.6 mg TAB PO SCH ×2 (08:50→19:46)
[2021-10-20] MEDS: Pantoprazole VIAL 40 MG VIAL IV SCH (08:52)
[2021-10-20] MEDS: Polyethylene Glycol 3350 17 GM PACKET PO SCH (08:52)
[2021-10-20] MEDS: Nicotine PATCH 7 MG/24 HR PATCH TRANSDERM SCH (08:59)
[2021-10-20] MEDS: Docusate LIQ 100 MG/10 ML UDC PO SCH ×2 (08:59→19:46)
[2021-10-20 10:21] LABS: ABS Eosinophils 0.4 10^3/ul (0-0.6); ABS Lymphocytes 1.2 10^3/ul (1.0-4.8); ABS Monocytes 0.7 10^3/ul (0-0.8); ABS Neutrophils 5.3 10^3/ul (1.5-7.7); Eosinophil % 5.8 %; Hematocrit 45 % (35-47); Hemoglobin 14.9 g/dL (12.0-16.0); Lymphocyte % 15.5 %; Mean Corpuscular HGB Conc 33 g/dL (31-36); Mean Corpuscular Hemoglobin 32 pg (27-31); Mean Corpuscular Volume 97 fL (80-97); Mean Platelet Volume 10.1 fL (7.4-10.4); Nucleated Red Blood Cells % 0.1; Platelet Count 112 10^3/uL (150-450); Red Blood Count 4.61 10^6 /uL (3.70-4.87); Red Cell Distribution Width 17 % (10-15); White Blood Count 7.7 10^3/uL (3.5-10.8)
[2021-10-20 10:41] LABS: Albumin 3.7 g/dL (3.2-5.2); Albumin/Globulin Ratio 1.1 (1-3); Calcium 9.5 mg/dL (8.6-10.3); Globulin 3.3 g/dL (2-4); Potassium 3.7 mmol/L (3.5-5.0); Total Bilirubin 0.7 mg/dL (0.2-1.0); eGFR CKD-EPI 101.8 (>60)
[2021-10-20 17:24] LABS: Urine Appearance Cloudy; Urine Bilirubin Negative (Negative); Urine Blood Negative (Negative); Urine Color Amber; Urine Glucose Negative (Negative); Urine Ketones Negative (Negative); Urine Nitrite Negative (Negative); Urine Protein Negative (Negative); Urine Specific Gravity 1.021 (1.002-1.030); Urine Urobilinogen Negative (Negative)
[2021-10-20 17:28] LABS: Urine Bacteria 1+ (Absent); Urine Red Blood Cell 3+(>10/hpf) (Absent); Urine Squamous Epithelial Cell Present (Absent); Urine White Blood Cell 3+(>20/hpf) (Absent)
[2021-10-21 05:27] LABS: ABS Eosinophils 0.4 10^3/ul (0-0.6); ABS Lymphocytes 1.4 10^3/ul (1.0-4.8); ABS Monocytes 0.9 10^3/ul (0-0.8); ABS Neutrophils 7.1 10^3/ul (1.5-7.7); Eosinophil % 3.8 %; Hematocrit 44 % (35-47); Hemoglobin 14.7 g/dL (12.0-16.0); Lymphocyte % 14.4 %; Mean Corpuscular HGB Conc 33 g/dL (31-36); Mean Corpuscular Hemoglobin 32 pg (27-31); Mean Corpuscular Volume 97 fL (80-97); Mean Platelet Volume 9.9 fL (7.4-10.4); Platelet Count 112 10^3/uL (150-450); Red Blood Count 4.56 10^6 /uL (3.70-4.87); Red Cell Distribution Width 17 % (10-15); White Blood Count 9.7 10^3/uL (3.5-10.8)
[2021-10-21] MEDS: Mometasone/Formoter 100/5 MDI INH SCH ×2 (08:00→20:50)
[2021-10-21] MEDS: Docusate LIQ 100 MG/10 ML UDC PO SCH ×2 (09:10→19:13)
[2021-10-21] MEDS: Nicotine PATCH 7 MG/24 HR PATCH TRANSDERM SCH (09:10)
[2021-10-21] MEDS: Senna TAB 8.6 mg TAB PO SCH ×2 (09:11→19:13)
[2021-10-21] MEDS: Polyethylene Glycol 3350 17 GM PACKET PO SCH (09:11)
[2021-10-21] MEDS: Pantoprazole VIAL 40 MG VIAL IV SCH (11:14)
[2021-10-21] MEDS ORDERED: Haloperidol 5 mg/ml SDV IV/IM 5 MG/ML AMP IV SLOW PU ONE (15:24)
[2021-10-21] MEDS: Haloperidol 5 mg/ml SDV IV/IM 5 MG/ML AMP IM PRN ×2 (18:42→21:13)
[2021-10-22] MEDS: Mometasone/Formoter 100/5 MDI INH SCH ×2 (08:37→19:29)
[2021-10-22] MEDS: Polyethylene Glycol 3350 17 GM PACKET PO SCH (09:40)
[2021-10-22] MEDS: Pantoprazole VIAL 40 MG VIAL IV SCH (09:40)
[2021-10-22] MEDS: Senna TAB 8.6 mg TAB PO SCH ×2 (09:40→21:08)
[2021-10-22] MEDS: Nicotine PATCH 7 MG/24 HR PATCH TRANSDERM SCH (09:40)
[2021-10-22] MEDS: Docusate LIQ 100 MG/10 ML UDC PO SCH ×2 (09:40→21:08)
[2021-10-23] MEDS: Mometasone/Formoter 100/5 MDI INH SCH (08:24)
[2021-10-23] MEDS: Pantoprazole VIAL 40 MG VIAL IV SCH (08:32)
[2021-10-23] MEDS: Polyethylene Glycol 3350 17 GM PACKET PO SCH (08:35)
[2021-10-23] MEDS: Docusate LIQ 100 MG/10 ML UDC PO SCH (08:35)
[2021-10-23] MEDS: Senna TAB 8.6 mg TAB PO SCH (08:35)
[2021-10-23] MEDS: Nicotine PATCH 7 MG/24 HR PATCH TRANSDERM SCH (08:35)
[2021-10-23 09:22] VITALS: BP 113/76
== END 2021-10-23 10:39 | disposition home or self-care (01) | DRG 130 ==
LOC: ED 19:36 → ICU 19:54 → SUATTDRO 21:14 → MED 10-09 15:59 → MEDTELE 10-13 00:13
PROVIDERS: ADMIT Internal Medicine; ATTEND Internal Medicine